=== PATIENT | male | born 1965 | race Caucasian/White ===

== ENCOUNTER 2017-04-23 16:19 | Emergency (ER) | payer BC ==
[2017-04-23 18:58] VITALS: BP 131/82
--- NOTE | 2017-04-23 19:07 | UC ---
FLU HPI - HPI Summary HPI Summary: 51 y/o male presents to the urgent care c/o cough, body aches, chills, decrease appetite, since yesterday. - History of Current Complaint Chief Complaint: UCGeneralIllness Stated Complaint: FLU LIKE Time Seen by Provider: 04/23/17 19:05 Hx Obtained From: Patient Onset/Duration: Gradual Onset Pain Intensity: 7 - Allergy/Home Medications Allergies/Adverse Reactions: Allergies Allergy/AdvReac Type Severity Reaction Status Date / Time environmental Allergy Eyes Uncoded 04/23/17 18:57 Itchy/Swollen/Red/Watery Home Medications: Home Medications guaiFENesin ER TAB [Mucinex*] 600 mg PO BID 04/23/17 [History Confirmed 04/23/17 ] PMH/Surg Hx/FS Hx/Imm Hx - Surgical History Surgical History: Yes Surgery Procedure, Year, and Place: left hip 1982 - Social History Alcohol Use: Rare Substance Use Type: None Smoking Status (MU): Never Smoked Tobacco Physical Exam Vital Signs: Initial Vital Signs Temp 99.1 F 04/23/17 18:54 Pulse 103 04/23/17 18:54 Resp 17 04/23/17 18:54 BP 131/82 04/23/17 18:54 Pulse Ox 100 04/23/17 18:54 Flu Course/Dx - Differential Dx/Diagnosis Differential Diagnosis/HQI/PQRI: Bronchitis, Influenza, Pneumonia, Upper Respiratory Infection Provider Diagnoses: 1- Upper respiratory infection Discharge - Discharge Plan Condition: Stable Disposition: HOME Prescriptions: Ibuprofen TAB* [Motrin TAB* 800 MG] 800 mg PO Q6H PRN #20 tab PRN Reason: Fever Patient Education Materials: Upper Respiratory Infection (ED) Forms: *Work Release Referrals: [facility] [Outside] - If Needed Additional Instructions: 1-Please take ibuprofen PO q6-8hrs prn as instructed after meals to alleviate pain and swelling. Increase fluid intake, eat well, rest and avoid strenuous exercise 2-If symptoms do not improve or worsen please return to the urgent care or f/u with your PCP for further evaluation and treatment.
== END 2017-04-23 19:45 | disposition home or self-care (01) ==
LOC: UCCORT 16:19
DX: J06.9 Acute upper respiratory infection, unspecified (principal)
CPT/HCPCS: 87502; 99202; G0463